=== PATIENT | female | born 1960 | race Caucasian/White ===

== ENCOUNTER 2017-10-14 09:15 | Observation (INO) | payer OTHER ==
[2017-10-14] MEDS ORDERED: ONDANSETRON 4 MG/2 ML VIAL IVP ONE (09:34)
[2017-10-14] MEDS ORDERED: NS 1,000 ML IV ONE (09:34)
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
--- NOTE | 2017-10-14 09:53 | CPEKG ---
Heart Rate: 51 RR Interval: 1176 P-R Interval: 148 QRSD Interval: 84 QT Interval: 440 QTC Interval: 406 P [place]: 72 QRS [place]: 81 T Wave [place]: 54 EKG Severity - NORMAL ECG - EKG Impression: SINUS RHYTHM Electronically Signed By: Finn Coronado 14-Oct-2017 09:56:53
[2017-10-14 10:13] LABS: ANION GAP 11 mEq/L (8-16); CALCIUM 9.2 mg/dL (8.5-10.4); CARBON DIOXIDE 21 mEq/l (22-31); CHLORIDE 110 mEq/L (97-110); CREATININE 0.8 mg/dL (0.6-1.0); GLOMERULAR FILTRATION RATE > 60; GLUCOSE 95 mg/dL (70-100); POTASSIUM 4.6 mEq/L (3.5-5.2); SODIUM 142 mEq/L (134-144); SPECIMEN HEMOLYSIS 113
[2017-10-14 10:25] LABS: TROPONIN I < 0.012 ng/mL (0.000-0.034)
[2017-10-14 10:43] LABS: % IMMATURE GRANULYOCYTES 0.3 % (0.0-1.1); ABSOLUTE IMMATURE GRANULOCYTES 0.02 10^3/uL (0.00-0.10); ADD DIFF? NO; ADD MORPH? NO; ADD SCAN? NO; ATYPICAL LYMPHOCYTE FLAG 0 (0-99); FRAGMENT RBC FLAG 0 (0-99); HEMATOCRIT 39.5 % (38.0-47.0); HEMOGLOBIN 13.6 g/dL (12.6-16.3); LEFT SHIFT FLG 0 (0-99); LIPEMIA HEMOLYSIS FLAG 90 (0-99); MEAN CELL HEMOGLOBIN 31.2 pg (27.9-34.1); MEAN CELL HEMOGLOBIN CONCENTR. 34.4 g/dL (32.4-36.7); MEAN CELL VOLUME 90.6 fL (81.5-99.8); MEAN PLATELET VOLUME 10.7 fL (8.7-11.7); PLATELET CLUMPS FLAG 20 (0-99); PLATELET COUNT 263 10^3/uL (150-400); RED BLOOD CELL COUNT 4.36 10^6/uL (4.18-5.33); RED CELL DISTRIBUTION WIDTH 13.5 % (11.5-15.2)
[2017-10-14] MEDS ORDERED: ACETAMINOPHEN 325 MG TAB PO PRN (11:54)
[2017-10-14] MEDS ORDERED: ONDANSETRON 4 MG/2 ML VIAL IVP PRN (11:54)
[2017-10-14] MEDS ORDERED: ONDANSETRON DISINTEGRATING 4 MG TAB PO PRN (11:54)
[2017-10-14] MEDS ORDERED: ALBUTEROL 60 PUFFS/8 GM MDI IH PRN (11:57)
[2017-10-14] MEDS ORDERED: ACETAMINOPHEN 325 MG TAB ONE (12:05)
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
[2017-10-15] MEDS ORDERED: ENOXAPARIN 40 MG/0.4 ML SYR SC SCH (09:00)
[2017-10-15] MEDS ORDERED: PNEUMOCOCCAL 0.5ML VACCINE VIAL IM ONE (10:58)
[2017-10-15 11:14] VITALS: BP 134/75; PULSE 57; RESP 10; TEMP 98.3; O2SAT 97
--- NOTE | 2017-10-15 12:56 | ECHO ---
[email or web address] [address] Main: [phone] Fax: Transthoracic Echocardiogram Name: ROBBY MACIEL MR#: [id number] Study Date: 10/15/2017 Study Time: 09:39 AM Date of : 1960 Age: 57 year(s) Height: 154.9 cm (61 in.) Weight: 68.49 kg (151 lb.) BSA: 1.68 m2 Gender: Female Examination: Echo Indication: Cardiac: syncope Image Quality: Contrast: Requested by: Naa Hough BP: 123 mmHg/63 mmHg Heart Rate: Rhythm: Sinus bradycardia Indication: Cardiac: syncope Procedure Staff Petroleum Production Engineer: Regino Dalton Reading Physician: Kali Adan Requesting Provider: Conclusions: Normal size left ventricle. EF is 79 %. No regional wall motion abnormality. Normal diastolic LV function. Normal appearing valvular structures. Trivial tricuspid valve regurgitation. The pulmonary artery pressure is normal. No pericardial effusion. Measurements: Chambers Valvular Assessment AV/MV Valvular Assessment TV/PV Normal Normal Normal Name Value Range Name Value Range Name Value Range Ao Radha (MM): 2.7 cm (2.2 cm-3.7 AV Vmax: 1.47 m/s (1 m/s-1.7 TR Vmax: 2.16 mm/s ( - ) cm) m/s) TR PGmax: 19 mmHg ( - ) IVSd (2D): 0.7 cm (0.6 cm-1.1 AV maxP mmHg ( - ) syst. PAP: 24 mmHg ( - ) cm) LVOT Vmax: 0.76 m/s (0.7 m/s-1.1 PV Vmax: 0.94 m/s (0.6 m/s-0.9 LVDd (2D): 3.9 cm (3.9 cm-5.3 m/s) m/s) cm) MV E Vmax: 0.86 m/s ( - ) PV PGmax: 4 mmHg ( - ) LVDs (2D): 2.1 cm (2.1 cm-4 MV A Vmax: 0.46 m/s ( - ) cm) MV E/A: 1.87 ( - ) LVPWd (2D): 0.8 cm ( - ) LVEF (2D): 79 (>=54 %) Continued Measurements: Chambers Valvular Assessment AV/MV Valvular Assessment TV/PV Name Value Name Value Name Value LADs Lon.5 cm MV E' Septal: 0.09 m/s CVP (est.): 5 mmHg Patient: ROBBY MACIEL Study Date: 10/15/2017 Page 1 of 2 09:39 AM LA Area: 11.3 cm2 MV E/E' Septal: 9.50 MV E/E' Lateral: 6.40 Findings: Left Ventricle: Normal size left ventricle. No LV hypertrophy. Normal global systolic LV function. EF is 79 %. No regional wall motion abnormality. Normal diastolic LV function. Right Ventricle: Normal size right ventricle. Normal RV function. Left Atrium: The left atrium is normal in size. Right Atrium: The right atrium is normal in size. Mitral Valve: The mitral valve is normal in appearance and function. There is no mitral valve regurgitation. Aortic Valve: The aortic valve is normal in appearance and function. The aortic valve is tri-leaflet. Tricuspid Valve: The tricuspid valve is normal in appearance and function. Trivial tricuspid valve regurgitation. The pulmonary artery pressure is normal. Pulmonic Valve: The pulmonic valve is normal in appearance and function. Aorta: The aorta is normal. Pericardium: No pericardial effusion. (No Signature Object) Patient: ROBBY MACIEL Study Date: 10/15/2017 Page 2 of 2 09:39 AM [id number]
--- NOTE | 2017-10-15 14:16 | ASMTCMCOM ---
CM Note CM Note Notes: 10/15/2017 Case Management Note Met w/pt. There are no d/c needs. However case management provided grief support group information to aide in support for recent suicide of son. Spiritual Care provided information for support meetings at the [facility] and Sat of the month from 5:30-7:00 pm Jessi Dominguez is police records clerk and can be reached at [phone]. Provided info also on [employer] a national support group with a chapter in [place] [employer]. They provided 1 on 1 support and travel to meet in the pt's home. Polishing Wheel Repairer is Candy Almanzar at [phone] Case Management encouraged pt to use [employer] benefits and to contact insurance company for mental health benefits. Date Signed: 10/15/2017 02:16 PM Electronically Signed By:Jocelyne Tomlin RN
--- NOTE | 2017-10-15 16:59 | ASDISCHSUM ---
Discharge Information Plan Status:Home with No Needs Medically Cleared to Leave:10/14/2017 Discharge Date:10/15/2017 02:37 PM CM D/C Disposition:Home, Routine, Self-Care ADT D/C Disposition:Home, Routine, Self-Care Projected Discharge Date:10/15/2017 02:37 PM Transportation at D/C:Self Discharge Delay Reason: Follow-Up Date:10/15/2017 02:37 PM Discharge Slot: Final Diagnosis: Placement Information Patient Contact Information Contact Name:ELISEOSTELLA Relationship:Daughter Address: Work Phone: City:[place] Alternate Phone: [facility]/[employer] Code:[place] Email: Financial Information Financial Class:[employer] [facility] Primary Plan Desc:[facility] Primary Plan Number:[id number] Secondary Plan Desc: Secondary Plan Number: Assessment Information [facility] CM Progress Note CM Note CM Note Notes: 10/15/2017 Case Management Note Met w/pt. There are no d/c needs. However case management provided grief support group information to aide in support for recent suicide of son. [facility] provided information for support meetings at the [facility] and Sat of the month from 5:30-7:00 pm Jessi Dominguez is regrinder and can be reached at [phone]. Provided info also on [employer] a national support group with a chapter in [place]. They provided 1 on 1 support and travel to meet in the pt's home. Infection Prevention Specialist is Candy Almanzar at [phone] Case Management encouraged pt to use [employer] benefits and to contact insurance company for mental health benefits. Date Signed: 10/15/2017 02:16 PM Electronically Signed By:Jocelyne Tomlin RN Intervention Information
--- NOTE | 2017-10-15 20:53 | GDS ---
[f rep st] DISCHARGE SUMMARY DISCHARGE DIAGNOSES: 1. Syncope. 2. Right foot trauma. 3. Alcohol abuse. 4. Acute grief. HISTORY OF PRESENT ILLNESS: A 57-year-old female with limited past medical history who presents to [facility] emergency department complaining of right hip pain. Noted to have multiple bruises and described an episode of syncope. For details of the patient's initial presentation, please see the history and physical dated 10/14/2017. CONSULTATIVE SERVICES: Cardiology. PROCEDURES: On 10/15/2017, the patient had a transthoracic echocardiogram. Shows normal LV size and function. HOSPITAL COURSE: By issue: 1. Syncope. The patient described an episode several days prior to presentation to the emergency de partment where she lost consciousness while sitting in a chair. Reportedly hit her face, chest, and acquire trauma to her foot. The patient was noted to be bradycardic on the EKG and admitted for sync ope observation. The patient had serial troponins performed, which were negative. veneer sander ing remained sinus with few periods of bradycardia into the 40s that resolved spontaneously. Transth oracic echocardiogram confirmed normal LV size and function. The patient was arranged with an outpat ient Holter monitor and Cardiology followup on 12/11/2016. After her workup, my greatest suspicion i s either an episode related to mild volume depletion, as she described very little p.o. intake beyond alcohol recently and/or possible bradycardic episode or vasovagal episode not seen on telemetry jose eduardo rojas. The patient will additionally follow with her primary care provider for post discharge tanvi ricci. 2. Right foot. The patient presented with bruising on the dorsum and plantar surfaces of her foot. It seemed inconsistent with her description of the mechanism of the fall. Plain film of the foot co nfirmed no acute osseous abnormality. She was seen by PT, ambulating without difficulty, with no nee d for assistive device. The patient will be discharged again with outpatient primary care followup. 3. Acute grief. The patient had several traumatic losses in her life in the last 2 years including her and her son-in-law in the last 2 months. We did consult Case Management who is helping h er arrange grief treatment. 4. Alcohol use. The patient openly admits that she has [facility] and coping. Again, we are hoping to provide more resources to assist her wi th her grief. MEDICATIONS AT THE TIME OF DISPOSITION: Please reference med rec printed on 10/15/2017. FOLLOWUP APPOINTMENTS: Cardiology in December with Holter monitoring to be sent to her home in the n ext 3-5 days and with primary care follow up in the next 2-4 weeks. PENDING STUDIES AT THE TIME OF THIS DICTATION: None. TIME SPENT: I spent greater than 30 minutes in the planning and coordination of this discharge. /[id number]/MODL
== END 2017-10-15 14:37 | disposition home or self-care (01) ==
LOC: UNDOADMOB 11:23 → F2W 13:00
PROVIDERS: ADMIT Hospitalist; ATTEND Hospitalist
DX: R55 Syncope and collapse (principal); R00.1 Bradycardia, unspecified; M79.671 Pain in right foot; S90.121A Contusion of right lesser toe(s) without damage to nail, initial encounter; S00.11XA Contusion of right eyelid and periocular area, initial encounter; W07.XXXA Fall from chair, initial encounter; Y92.019 Unspecified place in single-family (private) house as the place of occurrence of the external cause; F10.10 Alcohol abuse, uncomplicated; F43.20 Adjustment disorder, unspecified; Z23 Encounter for immunization
CPT/HCPCS: 70450; 71020; 73630; 90471; 93005; 93306; 97161; 97165; G0378; 80305; 96374; G0009; J1650; J2405

== ENCOUNTER 2018-07-08 05:56 | Inpatient (IN) | payer MEDICAID, OTHER ==
[2018-07-08] MEDS ORDERED: IPRATROPIUM/ALBUTEROL 3 ML DEYVIAL ONE (05:59)
[2018-07-08] MEDS ORDERED: MAGNESIUM SULF 1 GM/DEXTROSE 100 ML BAG IV ONE (06:00)
[2018-07-08] MEDS ORDERED: methylPREDNISolone SOD SUCC 125 MG/2 ML VIAL ONE (06:00)
[2018-07-08] MEDS ORDERED: MAGNESIUM SULF 2 GM/WATER 50 ML IV ONE (06:01)
[2018-07-08] MEDS ORDERED: NS 1,000 ML IV ONE (06:01)
[2018-07-08] MEDS ORDERED: IPRATROPIUM/ALBUTEROL 3 ML DEYVIAL IH ONE (06:01)
[2018-07-08] MEDS ORDERED: methylPREDNISolone SOD SUCC 125 MG/2 ML VIAL IVP ONE (06:01)
[2018-07-08] MEDS ORDERED: MAGNESIUM SULF 1 GM/DEXTROSE 100 ML IV ONE ×2 (06:08→06:09)
[2018-07-08] MEDS: ALBUTEROL 3 ML DEYVIAL IH ONE (06:10)
[2018-07-08] MEDS ORDERED: ONDANSETRON 4 MG/2 ML VIAL ONE (06:14)
[2018-07-08 06:15] LABS: PLATELET COUNT 342 10^3/uL (150-400)
[2018-07-08] MEDS ORDERED: ONDANSETRON 4 MG/2 ML VIAL IVP ONE (06:17)
[2018-07-08] MEDS ORDERED: ALBUTEROL 3 ML DEYVIAL IH ONE ×2 (06:17→06:40)
--- NOTE | 2018-07-08 06:17 | EDPHY ---
H & P Stated Complaint: asthma Time Seen by Provider: 07/08/18 06:11 HPI/ROS: HPI CHIEF COMPLAINT: Respiratory distress, walk-in, oxygen saturation 54% HISTORY OF PRESENT ILLNESS: A 57-year-old female presents to the emergency room by private vehicle with initial room air saturation of 54%. She presents to the ER with progressively worsening shortness of breath throughout the evening. States she started feeling bad with her asthma around 11:00 p.m. Last night. She thought controlled at home with her asthma medications however progressively got worse. She took a private vehicle here. She was immediately brought back from triage to ER room 2. She is immediately placed on full face BiPAP with a continuous breathing neb. Decreased breath sounds bilaterally with decreased air movement bilaterally and wheezing. Noted she was breathing 40-50 times per minute. O2 sat of 54% upon arrival. Heart rate 115. Patient does not want to be intubated at this time she wants to try BiPA P. She states she has never been intubated for asthma. She does speak 1 word sentences. Was Tri-poding upon arrival. Past Medical History: Asthma Past Surgical History: Denies recent surgery Social History: Denies drugs alcohol tobacco Family History: Noncontributory ROS REVIEW OF SYSTEMS: Limited due to patient's respiratory distress and mental state. Exam Constitutional respiratory distress, triage nursing summary reviewed, vital signs reviewed, awake and in distress. Eyes normal conjunctivae and sclera, EOMI, PERRLA. HENT normal inspection, atraumatic, moist mucus membranes, no epistaxis, neck supple/ no meningismus, no raccoon eyes. Respiratory respiratory distress decreased breath sounds bilaterally, wheezing bilaterally, little air movement. Cardiovascular tachycardic regular rhythm, no murmur, no edema, distal pulses normal. Gastrointestinal soft, non-tender, no rebound, no guarding, normal bowel sounds, no distension, no pulsatile mass. Genitourinary no CVA tenderness. Musculoskeletal no midline vertebral tenderness, full range of motion, no calf swelling, no tenderness of extremities, no meningismus, good pulses, neurovascularly intact. Skin diaphoretic Neurologic awake and alert however 1 more dyspnea. Psychiatric normal mood/affect. Heme/Lymph/Immune no lymphadenopathy. Differential Diagnosis: Includes but is not limited to in a particular order acute respiratory distress, hypoxic respiratory failure, hypercarbic respiratory failure, acute asthma exacerbation, CHF, ACS, pneumonia, PE Medical Decision Making: Plan for this patient she was immediately aggressively resuscitated in the emergency room a upon arrival to triage. She was placed on full face BiPAP continuous neb. She was given IV Solu-Medrol, IV magnesium, IV fluids. 2 large-bore IVs were established. ABG was obtain. She be closely monitored on full face BiPAP as she is declining intubation at this time. Patient does understand if she gets worse including getting tired, or worsening hypoxia or failing BiPAP she will need emergent intubation and is okay with this but at this time she did not want it. Re-evaluation: Critical Care: Total Critical Care Time Spent Managing this Patient: 65 Minutes. This time was spent Exclusively with this patient. This Care was exclusive of procedures. The Organ System/life at risk was pulmonary This Patient was in Critical Condition because severe asthma. EKG interpretation by me on record in [facility] system. Impression time of EKG 6:16 a.m., sinus tach 107 ST depression in lead V4 V5. V6. Most likely due to hypoxia no ST elevation. 0641: Patient is re-evaluated doing much better on full face BiPAP good air movement bilaterally. She has had multiple DuoNeb breathing treatments and continuous nebs. Received IV Solu-Medrol, IV fluids and IV Mag. Doing much better on full face BiPAP this time however still tachypneic. Current vitals heart rate 104, pulse ox 100% on FiO2 100% on BiPAP, blood pressure 135/90. She will need to go the ICU for close monitoring. Will be repeating her ABG. Chest x-ray reviewed does not show pneumonia. No pneumothorax. 0702: I continue to monitor the patient. Doing better. Still on BiPAP will need to go ICU for close monitoring. Repeat ABG better Source: Patient - Personal History Current Tetanus/Diphtheria Vaccine: Unsure Current Tetanus Diphtheria and Acellular Pertussis (TDAP): Unsure - Medical/Surgical History Hx Asthma: Yes Hx Chronic Respiratory Disease: No Hx Diabetes: No Hx Cardiac Disease: No Hx Renal Disease: No Hx Cirrhosis: No Hx Alcoholism: No Hx Splenectomy or Spleen Trauma: No Other PMH: asthma - Social History Smoking Status: Former smoker Constitutional: Initial Vital Signs O2 Sat (%) 93 07/08/18 06:01 O2 Delivery Mode Bi-Pap O2 (L/minute) 100 Allergies/Adverse Reactions: No Known Allergies Allergy (Verified 10/14/17 09:15) Home Medications: Medication Instructions Recorded Albuterol [Proventil Inhaler HFA 1 - 2 puffs IH DAILY PRN 10/14/17 (*)] Ibuprofen [Motrin (*)] 200 mg PO DAILY PRN 10/14/17 Medical Decision Making - Data Points Laboratory Results: Laboratory Results 07/08/18 06:00 07/08/18 06:00 07/08/18 07/08/18 07/08/18 06:50 06:15 06:00 WBC RBC Hgb Hct MCV MCH MCHC RDW Plt Count MPV Neut % (Auto) Lymph % (Auto) [place] % (Auto) Eos % (Auto) Baso % (Auto) Nucleat RBC Rel Count Absolute Neuts (auto) Absolute Lymphs (auto) Absolute Monos (auto) Absolute Eos (auto) Absolute Basos (auto) Absolute Nucleated RBC Immature Gran % Immature Gran # PT INR APTT Puncture Site RIGHT RADIAL RIGHT RADIAL Patient Temperature 37.0 DEGREES DEGREES 37.0 DEGREES DEGREES pCO2 44 mmHg H mmHg 52 mmHg H mmHg (34-38) (34-38) pO2 189 mmHg H mmHg 72 mmHg mmHg (65-75) (65-75) Total CO2 21 mEq/L L mEq/L 22 mEq/L L mEq/L (23-27) (23-27) ABG pH 7.27 L 7.21 L (7.35-7.45) (7.35-7.45) ABG PO2/FiO2 Ratio 189 RATIO RATIO ABG HCO3 19 mEq/L L mEq/L 20 mEq/L L mEq/L (22-26) (22-26) ABG O2 Saturation 99 % H % 89 % L % (92-95) (92-95) ABG Base Excess -7.1 mEq/L L mEq/L -8.1 mEq/L L mEq/L (-2.5-2.5) (-2.5-2.5) O2 Concentration % 100 % % (0-100) Inspiratory Pressure 12 Mode BiPAP YES Sodium Potassium Chloride Carbon Dioxide Anion Gap BUN Creatinine Estimated GFR Glucose Calcium Magnesium Total Bilirubin Conjugated Bilirubin Unconjugated Bilirubin AST ALT Alkaline Phosphatase POC Troponin I 0.01 ng/mL ng/mL (0.00-0.08) NT-Pro-B Natriuret Pep Total Protein Albumin 07/08/18 07/08/18 07/08/18 06:00 06:00 06:00 WBC 14.20 10^3/uL H 10^3/uL (3.80-9.50) RBC 5.16 10^6/uL 10^6/uL (4.18-5.33) Hgb 16.0 g/dL g/dL (12.6-16.3) Hct 47.8 % H % (38.0-47.0) MCV 92.6 fL fL (81.5-99.8) MCH 31.0 pg pg (27.9-34.1) MCHC 33.5 g/dL g/dL (32.4-36.7) RDW 13.2 % % (11.5-15.2) Plt Count 342 10^3/uL 10^3/uL (150-400) MPV 10.8 fL fL (8.7-11.7) Neut % (Auto) 61.5 % % (39.3-74.2) Lymph % (Auto) 26.6 % % (15.0-45.0) [place] % (Auto) 9.1 % % (4.5-13.0) Eos % (Auto) 1.7 % % (0.6-7.6) Baso % (Auto) 0.7 % % (0.3-1.7) Nucleat RBC Rel Count 0.0 % % (0.0-0.2) Absolute Neuts (auto) 8.74 10^3/uL H 10^3/uL (1.70-6.50) Absolute Lymphs (auto) 3.78 10^3/uL H 10^3/uL (1.00-3.00) Absolute Monos (auto) 1.29 10^3/uL H 10^3/uL (0.30-0.80) Absolute Eos (auto) 0.24 10^3/uL 10^3/uL (0.03-0.40) Absolute Basos (auto) 0.10 10^3/uL 10^3/uL (0.02-0.10) Absolute Nucleated RBC 0.00 10^3/uL 10^3/uL (0-0.01) Immature Gran % 0.4 % % (0.0-1.1) Immature Gran # 0.05 10^3/uL 10^3/uL (0.00-0.10) PT 13.3 SEC SEC (12.0-15.0) INR 0.99 (0.83-1.16) APTT 26.3 SEC SEC (23.0-38.0) Puncture Site Patient Temperature pCO2 pO2 Total CO2 ABG pH ABG PO2/FiO2 Ratio ABG HCO3 ABG O2 Saturation ABG Base Excess O2 Concentration % Inspiratory Pressure Mode BiPAP Sodium 144 mEq/L mEq/L (135-145) Potassium 3.8 mEq/L mEq/L (3.3-5.0) Chloride 110 mEq/L mEq/L (97-110) Carbon Dioxide 21 mEq/l L mEq/l (22-31) Anion Gap 13 mEq/L mEq/L (8-16) BUN 14 mg/dL mg/dL (7-23) Creatinine 0.9 mg/dL mg/dL (0.6-1.0) Estimated GFR > 60 Glucose 189 mg/dL H mg/dL (70-100) Calcium 9.8 mg/dL mg/dL (8.5-10.4) Magnesium 2.0 mg/dL mg/dL (1.6-2.3) Total Bilirubin 0.3 mg/dL mg/dL (0.1-1.4) Conjugated Bilirubin 0.2 mg/dL mg/dL (0.0-0.5) Unconjugated Bilirubin 0.1 mg/dL mg/dL (0.0-1.1) AST 23 IU/L IU/L (14-46) ALT 23 IU/L IU/L (9-52) Alkaline Phosphatase 66 IU/L IU/L (38-126) POC Troponin I NT-Pro-B Natriuret Pep 148 pg/mL H pg/mL (0-125) Total Protein 7.1 g/dL g/dL (6.3-8.2) Albumin 4.3 g/dL g/dL (3.5-5.0) Medications Given: Magnesium Sulfate/Dextrose (Magnesium Sulf 1 Gm (Premix)) 100 mls @ 100 mls/hr IV EDNOW ONE Stop: 07/08/18 07:07 Last Admin: 07/08/18 06:09 Dose: 100 mls Magnesium Sulfate/Dextrose (Magnesium Sulf 1 Gm (Premix)) 100 mls @ 100 mls/hr IV EDNOW ONE Stop: 07/08/18 07:08 Last Admin: 07/08/18 06:09 Dose: 100 mls Levofloxacin/Dextrose (Levaquin 750 Mg (Premix)) 150 mls @ 100 mls/hr IV EDNOW ONE PRN Reason: Protocol Stop: 07/08/18 07:48 Last Admin: 07/08/18 06:45 Dose: 150 mls Discontinued Medications Albuterol (Proventil Neb) 10 ml IH CONT ONE Stop: 07/08/18 06:03 Last Admin: 07/08/18 06:10 Dose: 10 ml Albuterol (Proventil Neb) 10 ml IH CONT ONE Stop: 07/08/18 06:18 Last Admin: 07/08/18 06:37 Dose: 10 ml Albuterol (Proventil Neb) 10 ml IH CONT ONE Stop: 07/08/18 06:41 Last Admin: 07/08/18 06:59 Dose: 10 ml Albuterol/Ipratropium (Duoneb) 3 ml IH EDNOW ONE Stop: 07/08/18 06:02 Last Admin: 07/08/18 06:10 Dose: 3 ml Etomidate (Etomidate) 20 mg IVP EDNOW ONE Stop: 07/08/18 06:34 Last Admin: 07/08/18 06:37 Dose: Not Given Sodium Chloride (Ns) 1,000 mls @ 0 mls/hr IV EDNOW ONE; Wide Open PRN Reason: Protocol Stop: 07/08/18 06:02 Last Admin: 07/08/18 06:11 Dose: 1,000 mls Magnesium Sulfate (Magnesium Sulf 2 Gm (Premix)) 50 mls @ 50 mls/hr IV EDNOW ONE Stop: 07/08/18 07:00 Last Admin: 07/08/18 06:08 Dose: Not Given Ketamine HCl (Ketamine) 200 mg IVP EDNOW ONE Stop: 07/08/18 06:34 Last Admin: 07/08/18 06:37 Dose: Not Given Methylprednisolone Sodium Succinate (Solu-Medrol) 125 mg IVP EDNOW ONE Stop: 07/08/18 06:02 Last Admin: 07/08/18 06:12 Dose: 125 mg Ondansetron HCl (Zofran) 4 mg IVP EDNOW ONE Stop: 07/08/18 06:18 Last Admin: 07/08/18 06:17 Dose: 4 mg Succinylcholine Chloride (Quelicin) 100 mg IVP EDNOW ONE Stop: 07/08/18 06:34 Last Admin: 07/08/18 06:37 Dose: Not Given Point of Care Test Results: Chemistry 07/08/18 06:15 POC Troponin I 0.01 ng/mL ng/mL (0.00-0.08) Departure - Departure Disposition: [facility] Inpatient Acute Clinical Impression: Respiratory distress, Acute respiratory failure with hypoxia Severe asthma Qualifiers: Asthma persistence: persistent Asthma complication type: uncomplicated Qualified Code(s): J45.50 - Severe persistent asthma, uncomplicated Condition: Critical
[2018-07-08 06:23] LABS: INR 0.99 (0.83-1.16); PROTIME(PATIENT) 13.3 SEC (12.0-15.0)
[2018-07-08] MEDS ORDERED: ETOMIDATE 40 MG/20 ML INJ IVP ONE (06:33)
[2018-07-08] MEDS ORDERED: KETAMINE 500 MG/10 ML VIAL IVP ONE (06:33)
[2018-07-08] MEDS ORDERED: SUCCINYLCHOLINE CHLORIDE 200 MG/10 ML SYR IVP ONE (06:33)
[2018-07-08] MEDS ORDERED: ONDANSETRON 4 MG/2 ML VIAL IVP PRN (07:14)
[2018-07-08] MEDS ORDERED: NS 1,000 ML IV SCH (07:15)
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
[2018-07-08] MEDS: ALBUTEROL 3 ML DEYVIAL IH PRN ×3 (08:06→15:52)
[2018-07-08] MEDS ORDERED: BUDESONIDE 0.5 MG/2 ML AMPUL.NEB IH SCH (09:00)
[2018-07-08] MEDS: ENOXAPARIN 40 MG/0.4 ML SYR SC SCH (09:58)
[2018-07-08] MEDS ORDERED: ALBUTEROL 3 ML DEYVIAL IH SCH ×2 (10:00→12:00)
[2018-07-08] MEDS ORDERED: AZITHROMYCIN IV 500 MG in NS 250 ML IV ONE (10:00)
--- NOTE | 2018-07-08 10:37 | HOSPPROG ---
Hospitalist Progress Note Assessment/Plan: # asthma with acute exacerbation - cont bipap, steroids, azith, nebs # acute hypoxic and hypercapnic resp failure - resp pcr pending Subjective: SBO improved on bipap Objective: Vital Signs Temp Pulse Resp BP Pulse Ox 37 C 103 H 21 H 120/74 95 07/08/18 08:19 07/08/18 10:00 07/08/18 10:00 07/08/18 10:00 07/08/18 10:00 PT 13.3 SEC (12.0-15.0) 07/08/18 06:00 INR 0.99 (0.83-1.16) 07/08/18 06:00 - Physical Exam Constitutional: uncomfortable Cardiovascular: no murmur, rub, or gallop, tachycardia Respiratory: expiratory wheeze, respiratory distress (mod), No reduced air movement, No inspiratory crackles, No bronchial breath sounds Gastrointestinal: soft, non-tender abdomen, no palpable masses, No guarding, No rebound, No distension ICD10 Worksheet Patient Problems: Problems Problem Status Onset Syncope and collapse Acute Bradycardia Acute Severe asthma Acute Respiratory distress Acute Acute respiratory failure with hypoxia Acute
[2018-07-08] MEDS ORDERED: methylPREDNISolone SOD SUCC 125 MG/2 ML VIAL IVP SCH (12:00)
[2018-07-08] MEDS: methylPREDNISolone SOD SUCC 125 MG/2 ML VIAL IVP SCH ×2 (12:04→17:28)
[2018-07-08] MEDS: LORazepam 2 MG/ML INJ IVP PRN ×2 (12:11→23:14)
--- NOTE | 2018-07-08 12:43 | GCON ---
CRITICAL CARE CONSULT DATE OF CONSULTATION: 07/08/2018 HISTORY OF PRESENT ILLNESS: This patient is a 57-year-old female who has a history of mild intermitt ent asthma, normally controlled with p.r.n. beta agonists alone, who developed a recent upper respira tory infection including sinus congestion and drainage which appeared to be getting better. Late las t night, however, she woke up suddenly short of breath and described inspiratory wheezing or stridor. She was taken to the emergency department where she was found to be cyanotic and had a room air oxy gen saturation of only 50%. She was placed on BiPAP, given nebulizers, as well as magnesium and ster oids. The emergency department staff was about to intubate her, but she declined and stabilized with BiPAP alone. A chest x-ray showed no significant infiltrates, though she did have an elevated white count. Her blood gas showed a pH 7.21, pCO2 of 52, and bicarb of 20, with a PO2 of 72. She was sub sequently transferred to the intensive care unit where her tachypnea was substantially better than on arrival. She did have a trial off BiPAP, but felt more comfortable with it in place. Her blood gas es on BiPAP certainly showed signs of improvement. She denies any chills or sweats. There has been no diarrhea. There has been no chest pain. No hemo ptysis. She has a history of allergic rhinitis, as well as asthma, with a documented FEV1 of about 7 8%, with obstructive spirometry in 2013. She has not had a lot of emergency room visits, hospitaliza tions, or pneumothorax related to her underlying asthma. REVIEW OF SYSTEMS: Otherwise negative. PAST MEDICAL HISTORY: Includes: 1. Asthma as described above. 2. Benign positional vertigo. 3. Vasovagal syncope in the past. 4. Allergic rhinitis. PAST SURGICAL HISTORY: Includes tubal ligation. SOCIAL HISTORY: She is a remote smoker, but has not smoked in many years. Occasional alcohol. No I V drug use. FAMILY HISTORY: Includes breast cancer. OUTPATIENT MEDICATIONS: Include only albuterol and ibuprofen p.r.n. EXAM: VITAL SIGNS: She has been afebrile since admission. Her blood pressure now 120/74, heart rat e 103, respirations 21, oxygen saturation 95% on 50% with BiPAP. GENERAL: She was awake and alert, oriented x3, in no major distress. Not using accessory muscles for breathing. She was able to speak in full sentences both on and off BiPAP. HEENT: Pupils equally round and reactive to light. Nonic teric and noninjected. Mucous membranes moist without erythema or exudate. No evidence of thrush. LUNGS: Breath sounds had faint inspiratory and expiratory wheezing, but was otherwise clear with goo d air movement. HEART: Regular rate and rhythm without murmurs, rubs, gallops. ABDOMEN: Soft, non tender, nondistended, without hepatosplenomegaly. EXTREMITIES: Show no clubbing, cyanosis, or edema . NEUROLOGIC: Nonfocal, including cranial nerves, deep tendon reflexes. SKIN: Warm and dry withou t evidence of rash. OBJECTIVE DATA: Includes a white count of 14, hematocrit 47.8, platelets of 342. Normal INR. Blood gas initially 7.21, pCO2 52, PO2 72, bicarb of 20, saturation 89%. Followup blood gas with a pH 7.2 7, pCO2 44, PO2 189, bicarb of 19, saturation 99%. Basic metabolic panel was essentially normal, carmen e for a glucose of 189. LFTs were normal. BNP was only 148. Troponin was negative. Chest x-ray and EKG were negative. ASSESSMENT/PLAN: 1. Asthma exacerbation, likely related to a recent upper respiratory infection. Other more remote p ossibilities would be vocal cord dysfunction or possibly mucus plugging that would cause inspiratory stridor. I heard no stridor during my exam. She seemed to be better, but she was more comfortable o n BiPAP. I think in the short term, we should support her with BiPAP as needed. Continue to give he r albuterol; though she is only getting p.r.n. nebs, I would schedule her q.6 hours. She is getting scheduled 60 mg q.6 hours of Solu-Medrol; increase at 125 at least for today. She got Levaquin in e emergency department, but I think a macrolide antibiotic would be more useful, though my suspicion for bacterial infection is low. There are other properties of macrolides, particularly useful in the asthma setting. I do not feel that she needs Heliox at this time or more aggressive therapies. We will see how well she does with BiPAP over the rest of the day. 2. Hypoxemia. This is related to #1. She is doing substantially better at this point and her respi ratory rate is improved. My suspicion for other diseases such as acute coronary syndromes or pulmona ry embolism is quite low at this point. /[id number]/MODL
--- NOTE | 2018-07-08 15:19 | ASMTCMCOM ---
CM Note CM Note Notes: 57yr old female admitted for SOB, Respiratory distress, N/V/D. She has a Hx of Asthma, BPPV and a former smoker. Patient now on Bipap and getting neb tx's-doing better. She has a daughter who lives in [place]. May not have discharge needs. Date Signed: 07/08/2018 03:16 PM Electronically Signed By:Nereida Reddy LCSW
[2018-07-08] MEDS: ACETAMINOPHEN 325 MG TAB PO PRN (17:28)
[2018-07-08] MEDS: IPRATROPIUM/ALBUTEROL 3 ML DEYVIAL IH SCH ×2 (17:37→23:03)
[2018-07-09] MEDS: methylPREDNISolone SOD SUCC 125 MG/2 ML VIAL IVP SCH ×4 (00:05→18:19)
[2018-07-09] MEDS: ALBUTEROL 3 ML DEYVIAL IH PRN (02:43)
[2018-07-09] MEDS: ACETAMINOPHEN 325 MG TAB PO PRN ×2 (02:54→10:56)
[2018-07-09] MEDS: LORazepam 2 MG/ML INJ IVP PRN (02:55)
[2018-07-09] MEDS: IPRATROPIUM/ALBUTEROL 3 ML DEYVIAL IH SCH ×3 (05:47→16:59)
[2018-07-09 06:25] LABS: PLATELET COUNT 214 10^3/uL (150-400)
[2018-07-09] MEDS: ENOXAPARIN 40 MG/0.4 ML SYR SC SCH (08:18)
[2018-07-09] MEDS: AZITHROMYCIN IV 250 MG in NS 250 ML IV SCH (08:18)
--- NOTE | 2018-07-09 09:47 | PDMN ---
Medical Necessity Medical necessity: Pt meets IP criteria per MD & MCG M-60; est los >2 mn for eval/tx of status asthmaticus w/acute hypoxic & hypercapnic respiratory failure , viral syndrome & hyperglycemia; pt critically ill; requiring further ICU monitoring, BiPAP, respiratory supportive care, IV Solu-Medrol, IVFs & IV abx; per H&P & order 07/08/18
[2018-07-09] MEDS ORDERED: ALBUTEROL 60 PUFFS/8 GM MDI IH PRN (10:54)
[2018-07-09] MEDS ORDERED: IBUPROFEN 200 MG TAB PO PRN (10:54)
[2018-07-09] MEDS ORDERED: ALBUTEROL SULFATE 1.25 MG IH PRN (10:54)
--- NOTE | 2018-07-09 12:34 | PDINTPN ---
Glove Tagger Progress Note Assessment/Plan: 57 F with history of asthma and recent URI complained of waking with severe SOB , inspiratory and expiratory wheezing so came to ER where she was found to be very hypoxic but had a normal CXR, EKG, etc. She was treated with steroids, nebs , levaquin, magnesium and bipap and transferred to ICU. A brief trial off bipap on arrival was unsuccessful so her steroids were increased, nebs changed to duoneb and antibiotic changed to Zithromax. * Asthma with acute exacerbation likely related to rhinovirus URI. She has improved substantially today and has transitioned off bipap to 6 lpm oxymask. Agree with reduced steroid dose to 60/6 hrs today but continue with azithromycin and nebs. Heliox not needed. * OK for SDU Subjective: feeling slightly better after using bipap all day/night. Objective: Vital Signs Temp Pulse Resp BP Pulse Ox 37.3 C 95 18 112/62 96 07/09/18 00:00 07/09/18 11:15 07/09/18 11:15 07/09/18 10:00 07/09/18 11:15 Microbiology 07/08/18 09:30 Respiratory Panel (PCR) - Final Nasal, Sinus - Swab Human Rhinovirus/Enterovirus Laboratory Results 07/09/18 06:10 07/09/18 06:10 07/08/18 07/09/18 07/10/18 05:59 05:59 05:59 Intake Total 2833 Output Total 1200 Balance 1633 PT 13.3 SEC (12.0-15.0) 07/08/18 06:00 INR 0.99 (0.83-1.16) 07/08/18 06:00 Physical Exam - Physical Exam General Appearance: alert, no apparent distress EENT: PERRL/EOMI Neck: supple Respiratory: decreased breath sounds, wheezing, No respiratory distress, No accessory muscle use, No stridor Cardiac/Chest: regular rate, rhythm, No edema Abdomen: non-tender, soft, No distended Skin: normal color, warm/dry, No cyanosis Lymphatic: no adenopathy Extremities: No pedal edema Neuro/Psych: alert, normal mood/affect, oriented x 3 ICD10 Worksheet Patient Problems: Problems Problem Status Onset Acute respiratory failure with hypoxia Acute Respiratory distress Acute Severe asthma Acute Bradycardia Acute Syncope and collapse Acute
--- NOTE | 2018-07-09 17:57 | HOSPPROG ---
Hospitalist Progress Note Assessment/Plan: Assessment: 57 yo F p/w acute hypoxic and hypercapnic respiratory failure 2/2 acute asthma exacerbation Plan: # asthma with acute exacerbation. evidenced by diffuse exp wheezes, hypoxia/ hypercapnea -d/w Dr. Giraldo on rounds, we agree to reduce steroids to methylpre 60 q6, cont scheduled nebs w/ ongoing wheezing, cont azithro D#2 # acute hypoxic and hypercapnic resp failure. pCO2 52 w/ ph 7.21 w/ SpO 54% and objective tachypnea (RR 46) w/ visible resp distress, 2/2 asthma exacerbation -CXR w/o focal infiltrate (personally interpreted) -cont breathing tx/steroids -cont on supp high flow o2, no heliox # URI. likely trigger, rhino/enterovirus (+) -tx supportively diet. regular ppx. high risk, lovenox 40 code. full dispo. ADD uncertain, exacerbation clinically unresolved high risk patient of worsening morbidity/mortality, cont SDU care Subjective: patient fatigued Objective: Vital Signs Temp Pulse Resp BP Pulse Ox 37.2 C 102 H 18 133/72 H 97 07/09/18 16:00 07/09/18 17:10 07/09/18 17:10 07/09/18 16:00 07/09/18 17:10 Laboratory Results 07/09/18 06:10 07/09/18 06:10 07/08/18 07/09/18 07/10/18 05:59 05:59 05:59 Intake Total 2833 1950 Output Total 1200 700 Balance 1633 1250 PT 13.3 SEC (12.0-15.0) 07/08/18 06:00 INR 0.99 (0.83-1.16) 07/08/18 06:00 - Physical Exam Constitutional: appears nourished, not in pain, chronically ill appearing, uncomfortable Cardiovascular: regular rate and rhythym, no murmur, rub, or gallop, No edema Respiratory: reduced air movement (on exp bilat), expiratory wheeze, No inspiratory crackles, No respiratory distress Gastrointestinal: normoactive bowel sounds, soft, non-tender abdomen, no palpable masses Neurologic: AAOx3, other (lethagic but arousable) Psychiatric: interacting appropriately, not anxious, not encephalopathic, thought process linear, flat affect ICD10 Worksheet Patient Problems: Problems Problem Status Onset Syncope and collapse Acute Bradycardia Acute Severe asthma Acute Respiratory distress Acute Acute respiratory failure with hypoxia Acute
[2018-07-09] MEDS ORDERED: CALCIUM CARBONATE 500 MG CHEWABLE TAB PO PRN (18:24)
--- NOTE | 2018-07-09 23:09 | CPEKG ---
Test Reason : OPEN Blood Pressure : / mmHG Vent. Rate : 107 BPM Atrial Rate : 054 BPM P-R Int : 174 ms QRS Dur : 094 ms QT Int : 350 ms P-R-T Axes : 089 094 -03 degrees QTc Int : 467 ms Sinus tachycardia Borderline right axis deviation Confirmed by Mazin Cole ([id number]) on 07/09/2018 11:08:11 PM Referred By: Confirmed By:Mazin Cole
[2018-07-10] MEDS: methylPREDNISolone SOD SUCC 125 MG/2 ML VIAL IVP SCH ×2 (00:42→05:53)
[2018-07-10] MEDS: IPRATROPIUM/ALBUTEROL 3 ML DEYVIAL IH SCH ×2 (00:45→05:44)
[2018-07-10] MEDS: ENOXAPARIN 40 MG/0.4 ML SYR SC SCH (08:33)
[2018-07-10] MEDS: AZITHROMYCIN IV 250 MG in NS 250 ML IV SCH (08:54)
--- NOTE | 2018-07-10 09:41 | PDINTPN ---
[employer] Package Symbol Stamper Progress Note Assessment/Plan: 57 F with history of asthma and recent URI complained of waking with severe SOB , inspiratory and expiratory wheezing so came to ER where she was found to be very hypoxic but had a normal CXR, EKG, etc. She was treated with steroids, nebs , levaquin, magnesium and bipap and transferred to ICU. A brief trial off bipap on arrival was unsuccessful so her steroids were increased, nebs changed to duoneb and antibiotic changed to Zithromax. * Asthma with acute exacerbation likely related to rhinovirus URI. She continues to improve and is now don to 2 lpm NC (86% RA at rest). Change to prednisone and advair 100/50 with prn albuterol. Complete 5 days (01/06 today) zithromax. May be ready for dc home in AM, in which case she should taper prednisone over about 2 weeks. After 3-4 weeks, she should see me in the office for eval, including PFTs. Would dc on advair, which we can modify as appropriate as an outpatient. She was previously controlled on albuterol prn alone (no maintenance therapy). * Hypoxia- 2/2 asthma exacerbation. Not quite ready for RA at the moment and may need to be dc'd on O2 * OK for med/surg today (transfer orders written) 07/10/18 09:37 Subjective: feels much better today Objective: Vital Signs Temp Pulse Resp BP Pulse Ox 36.8 C 88 13 118/62 92 07/10/18 08:30 07/10/18 08:30 07/10/18 08:30 07/10/18 08:30 07/10/18 08:30 Laboratory Results 07/09/18 06:10 07/09/18 06:10 07/09/18 07/10/18 07/11/18 05:59 05:59 05:59 Intake Total 2833 2050 Output Total 1200 700 1 Balance 1633 1350 -1 PT 13.3 SEC (12.0-15.0) 07/08/18 06:00 INR 0.99 (0.83-1.16) 07/08/18 06:00 Physical Exam - Physical Exam General Appearance: alert, no apparent distress EENT: PERRL/EOMI Neck: supple Respiratory: lungs clear, normal breath sounds, No respiratory distress, No accessory muscle use Cardiac/Chest: regular rate, rhythm, No edema Abdomen: non-tender, soft, No distended Skin: normal color, warm/dry, No cyanosis Lymphatic: no adenopathy Extremities: No pedal edema Neuro/Psych: alert, normal mood/affect, oriented x 3 ICD10 Worksheet Patient Problems: Problems Problem Status Onset Acute respiratory failure with hypoxia Acute Respiratory distress Acute Severe asthma Acute Bradycardia Acute Syncope and collapse Acute
[2018-07-10] MEDS ORDERED: predniSONE 20 MG TAB PO SCH (09:54)
[2018-07-10] MEDS: FLUTICASONE/SALMETER 100/50MCG DISKUS IH SCH ×2 (09:55→20:13)
--- NOTE | 2018-07-10 10:06 | HOSPPROG ---
Hospitalist Progress Note Assessment/Plan: Assessment: 57 yo F p/w acute hypoxic and hypercapnic respiratory failure 2/2 acute asthma exacerbation Plan: # asthma with acute exacerbation. evidenced by diffuse exp wheezes, hypoxia/ hypercapnea -d/w Dr. Giraldo, we agree that wheezing improving and will transfer to med surg, -adjust steroids to pred 40 daily w/ plan for 2 week taper and 3-4 week f/u w/ Dr. Giraldo -started advair, cont as outpt -adjust to PRN nebs -cont azithro D#3/5 # acute hypoxic and hypercapnic resp failure. pCO2 52 w/ ph 7.21 w/ SpO 54% and objective tachypnea (RR 46) w/ visible resp distress, 2/2 asthma exacerbation -hypoxic on RA (86%), remains clinically unresolved # URI. likely trigger, rhino/enterovirus (+) -tx supportively diet. regular ppx. high risk, lovenox 40 code. full dispo. ADD 07/11, exacerbation clinically unresolved Subjective: patient feels better, somewhat SOB w/ activity, felt SOB when off o2 Objective: Vital Signs Temp Pulse Resp BP Pulse Ox 36.8 C 88 13 118/62 92 07/10/18 08:30 07/10/18 08:30 07/10/18 08:30 07/10/18 08:30 07/10/18 08:30 Laboratory Results 07/09/18 06:10 07/09/18 06:10 07/09/18 07/10/18 07/11/18 05:59 05:59 05:59 Intake Total 2833 2050 Output Total 1200 700 1 Balance 1633 1350 -1 PT 13.3 SEC (12.0-15.0) 07/08/18 06:00 INR 0.99 (0.83-1.16) 07/08/18 06:00 - Pending Discharge Pending Discharge Within 24 Hours: Yes Pending Discharge Date: 07/11/18 Pending Discharge Time: 11:00 - Physical Exam Constitutional: no apparent distress, appears nourished, not in pain, No uncomfortable Cardiovascular: regular rate and rhythym, no murmur, rub, or gallop, No edema Respiratory: reduced air movement (on exp bilat), expiratory wheeze (bilat, fine ), No inspiratory crackles, No bronchial breath sounds, No respiratory distress Gastrointestinal: normoactive bowel sounds, soft, non-tender abdomen, no palpable masses, No distension Neurologic: AAOx3 Psychiatric: interacting appropriately, not anxious, not encephalopathic, thought process linear ICD10 Worksheet Patient Problems: Problems Problem Status Onset Syncope and collapse Acute Bradycardia Acute Severe asthma Acute Respiratory distress Acute Acute respiratory failure with hypoxia Acute
[2018-07-10] MEDS: IPRATROPIUM/ALBUTEROL 3 ML DEYVIAL IH PRN ×2 (10:52→20:23)
--- NOTE | 2018-07-10 14:47 | ASMTCMCOM ---
CM Note CM Note Notes: Chart reviewed. Patient PT evaluation indicates no needs at this time. Lives with daughter. CM available should needs arise. Plan: Likely home independently. Date Signed: 07/10/2018 02:47 PM Electronically Signed By:Sloane Lobato RN
[2018-07-11] MEDS: ENOXAPARIN 40 MG/0.4 ML SYR SC SCH (08:32)
[2018-07-11] MEDS ORDERED: predniSONE 20 MG TAB PO SCH (09:00)
[2018-07-11] MEDS ORDERED: AZITHROMYCIN 250 MG TAB PO SCH (09:00)
[2018-07-11] MEDS: FLUTICASONE/SALMETER 100/50MCG DISKUS IH SCH (09:48)
[2018-07-11 11:33] VITALS: BP 139/77
--- NOTE | 2018-07-11 13:18 | PDHOMEO2F ---
Home Oxygen Face to Face Home Orders: I certify that a physician or a nurse practitioner or physician's anesthesiologists' assistant has had a [id number] encounter with this patient on the date of this order due to the diagnosis listed, which relates to the primary reason the patient requires home oxygen. Alternative treatments have been tried, or considered, and deemed ineffective. It is anticipated that supplemental oxygen will result in improvement with treatment. Home oxygen qualifying diagnosis: Asthma SpO2 on room air (%): 86 Frequency of home oxygen needed: continuous Home oxygen liters per minute: 2 Home oxygen delivery device: nasal cannula Concentrator: Yes E-tanks for mobility and back up: Yes If ordering portable O2, is the patient mobile in the home?: Yes I certify that, based on these findings, the home oxygen is medically necessary for this patient for the following length of time. Length of time home oxygen needed: 1 month
[2018-07-11] MEDS ORDERED: IPRATROPIUM/ALBUTEROL 3 ML DEYVIAL IH SCH (13:30)
--- NOTE | 2018-07-11 16:00 | PDDCSUM ---
Discharge Summary Discharge Summary: DISCHARGE SUMMARY FOLLOW-UP ITEMS: Outpatient pulmonary function test in 3-4 weeks Reassess oxygen requirements at pulmonary office DATE OF ADMISSION: 07/08/2018 DATE OF DISCHARGE: 07/11/2018 DISCHARGE DIAGNOSES: 1. Acute asthma exacerbation 2. Acute hypoxic and hypercapnic respiratory failure 3. Upper respiratory infection CONSULTATIONS: Pulmonary critical care PROCEDURES / IMAGING: Chest x-ray demonstrating no infiltrate CHIEF COMPLAINT: Acute shortness of breath SUBJECTIVE: Patient is feeling well at time discharge, she does have some ongoing expiratory wheeze and had significant coughing overnight, she requests to be discharged home at this time PHYSICAL EXAM ON DISCHARGE: Systolic blood pressure is 110-120, heart rate 80, afebrile overnight, satting 86% on room air at rest, 85% on room air with activity, faint expiratory wheeze bilaterally posteriorly, more pronounced expiratory wheeze anteriorly, no bronchial breath sounds, no inspiratory crackles, heart rhythm is regular, no lower extremity edema, alert awake oriented x3, not encephalopathic HOSPITAL COURSE BY PROBLEM: Patient presented with acute hypoxic and hypercapnic respiratory failure secondary to acute asthma exacerbation. The patient's arterial blood gas demonstrated a pCO2 of 52 with a pH of 7.21 and her initial SPO 2 was 54% on room air with objective tachypnea, notably respiratory rate of 46, with visible respiratory distress. The patient was placed on high-flow supplemental oxygen, and then BiPAP therapy after her blood gas results were available. Her respiratory status was stabilized on BiPAP, and then de-escalated to high-flow oxygen, weaned to 2 L nasal cannula after receiving several days of scheduled duo nebulizer treatments as well as high-dose IV steroids. Her steroids were titrated to prednisone 40 mg daily, with the plan for an extended taper in the outpatient setting. Her scheduled duo nebs were weaned to as needed nebulizer treatments, and the patient will receive a prescription for as needed albuterol nebulized, as well as use of her home inhaler p.r.n.. She was seen consultation by Pulmonary who recommended scheduled comma low-dose Advair, and follow-up pulmonary function tests in approximately 3-4 weeks after this acute episode has resolved. She also received macrolide antibiotic to reduce airway inflammation and reduce duration of symptoms. Her trigger for her asthma exacerbation was most likely an upper respiratory infection, notably enterovirus and rhinovirus on respiratory PCR. She was treated supportively with antitussives and contact precautions, and will continue antitussives with as needed albuterol moving forward. She will require supplemental oxygen at time of discharge, with oxygen needs to be reassessed as an outpatient. She has plans to travel to [place] in the near future, and we have recommended that the patient purchase an ambulatory pulse oximeter, to determine whether she requires supplemental oxygen in the short term, [place]. We advised her that if she is hypoxic on pulse oximeter comma that she utilize her albuterol inhaler and seek medical attention if necessary. DISCHARGE MEDICATIONS: Please see official discharge medication reconciliation sheet in chart , Advair 100/50 twice daily, albuterol inhaler as needed, albuterol nebulized as needed, prednisone taper, azithromycin 250 for 1 subsequent day, Tessalon Perles as needed. DISCHARGE INSTRUCTIONS: Please follow up with Dr. James Giraldo in 3-4 weeks. TIME SPENT: Greater than 30 minutes were spent on direct patient care, as well as discharge planning and preparation.
== END 2018-07-11 14:45 | disposition home or self-care (01) | DRG 141 ==
LOC: F2N 07:44 → F1N 07-10 15:53
PROVIDERS: ADMIT Family Medicine; ATTEND Family Medicine
PROC: 5A0935Z Assistance with Respiratory Ventilation, Less than 24 Consecutive Hours (ICD-10-PCS; principal; 2018-07-08)
DX: J45.901 Unspecified asthma with (acute) exacerbation (principal); J96.01 Acute respiratory failure with hypoxia; J96.02 Acute respiratory failure with hypercapnia; J06.9 Acute upper respiratory infection, unspecified; B97.10 Unspecified enterovirus as the cause of diseases classified elsewhere; B97.89 Other viral agents as the cause of diseases classified elsewhere; E16.2 Hypoglycemia, unspecified; H81.10 Benign paroxysmal vertigo, unspecified ear
CPT/HCPCS: 84484-PO; 96374; 97116-GP; 97161-GP; J0330; J0456; J1650; J1956; J2060; J2270; J2405; J2930; J3475; J7512; J7613; J7626

== ENCOUNTER 2019-02-01 13:36 | Inpatient (IN) | payer MEDICAID ==
[2019-02-01] MEDS ORDERED: IPRATROPIUM/ALBUTEROL 3 ML DEYVIAL IH ONE (13:39)
[2019-02-01] MEDS ORDERED: methylPREDNISolone SOD SUCC 125 MG/2 ML VIAL IVP ONE (13:43)
[2019-02-01] MEDS ORDERED: ALBUTEROL 3 ML DEYVIAL IH ONE (13:43)
--- NOTE | 2019-02-01 13:47 | EDPHY ---
H & P Stated Complaint: asthma exacerbation Time Seen by Provider: 02/01/19 13:40 HPI/ROS: CHIEF COMPLAINT: Shortness of breath HISTORY OF PRESENT ILLNESS: 58-year-old female with asthma presents with shortness of breath. Onset of mild shortness of breath yesterday. Using home nebulizer with some relief yesterday. Shortness of breath increased today, is severe and unrelieved with home nebs. SOB at rest, agrevated with minimal exertion. Prior admission for asthma requiring BiPAP and a 5 day admission. No recent URI symptoms, chest pain or fever. REVIEW OF SYSTEMS: complete 10 point ROS reviewed and is negative except for the noted elements in the HPI - Personal History Current Tetanus Diphtheria and Acellular Pertussis (TDAP): Yes - Medical/Surgical History Hx Asthma: Yes Hx Chronic Respiratory Disease: No Hx Diabetes: No Hx Cardiac Disease: No Hx Renal Disease: No Hx Cirrhosis: No Hx Alcoholism: No Hx HIV/AIDS: No Hx Splenectomy or Spleen Trauma: No Other PMH: asthma - Social History Smoking Status: Former smoker Alcohol Use: Sober - Physical Exam Exam: General Appearance: Alert, pleasant, speaks in full sentences on oxygen 8 L by nasal cannula Eyes: Pupils equal and round, no conjunctival pallor or injection ENT, Mouth: Mucous membranes moist Neck: Normal inspection Respiratory: Tachypnea, diffuse expiratory wheezing Cardiovascular: Regular rate and rhythm Gastrointestinal: Abdomen is soft and nontender Neurological: A&O, nonfocal, normal gait Skin: Warm and dry Extremities: Normal inspection Psychiatric: Mood and affect normal Constitutional: Initial Vital Signs Temperature (C) 36.7 C 02/01/19 13:41 Heart Rate 108 H 02/01/19 13:41 Respiratory Rate 34 H 02/01/19 13:41 Blood Pressure 152/106 H 02/01/19 13:41 O2 Sat (%) 77 L 02/01/19 13:41 O2 Delivery Mode Room Air O2 (L/minute) 5 Allergies/Adverse Reactions: No Known Allergies Allergy (Verified 02/01/19 13:40) Home Medications: Medication Instructions Recorded Albuterol [Proventil Inhaler HFA 1 - 2 puffs IH Q4H PRN 10/14/17 (*)] Albuterol Sulfate [ALBUTEROL 1.25 mg IH Q4H PRN #30 vial.neb 09/07/18 SULFATE 1.25 MG/3 ML] Fluticasone/Salmeter 100/50Mcg 1 puffs IH BID #1 disk 07/11/18 [Advair 100/50 (*)] Medical Decision Making - Diagnostics Imaging Results: Imaging Impressions Chest X-Ray 02/01/19 13:43 Impression: No evidence for acute cardiopulmonary abnormality. Imaging: I viewed and interpreted images myself ED Course/Re-evaluation: This patient presents with an asthma exacerbation and acute hypoxemic respiratory failure with O2 sat 77% RA. DuoNeb and continuous albuterol neb given. Solu-Medrol 125 mg IV given. IV NS 1 liter. 1420: improved air exchange, continued diffuse expiratory wheezing. Switched to oximask, O2 sat 90%. Pt's resp status improved, able to speak in full sentences. Declines albuterol neb for now. The hospitalist service was consulted for admission. Will admit to stepdown for close monitoring. 1500: resting comfortably. Chest: difuse expir wheezing. Remains somewhat improved. Awaiting inpt bed. this pt utilized 35 minutes of critical care time exclusive of unbundled procedures. Time spent in serial assessments, ordering box operator of labs/Xray/ medications, consultations, documentation. Organ at risk: pulmonary Differential Diagnosis: includes though not limited to pneumonia, PTX, empyema, pulm edema, ACS - Data Points Laboratory Results: Laboratory Results 02/01/19 13:55 02/01/19 13:55 02/01/19 02/01/19 02/01/19 13:55 13:55 13:55 WBC 8.12 10^3/uL 10^3/uL (3.80-9.50) RBC 5.30 10^6/uL 10^6/uL (4.18-5.33) Hgb 16.1 g/dL g/dL (12.6-16.3) Hct 48.6 % H % (38.0-47.0) MCV 91.7 fL fL (81.5-99.8) MCH 30.4 pg pg (27.9-34.1) MCHC 33.1 g/dL g/dL (32.4-36.7) RDW 14.7 % % (11.5-15.2) Plt Count 311 10^3/uL 10^3/uL (150-400) MPV 10.5 fL fL (8.7-11.7) Neut % (Auto) 85.7 % H % (39.3-74.2) Lymph % (Auto) 8.9 % L % (15.0-45.0) [place] % (Auto) 4.3 % L % (4.5-13.0) Eos % (Auto) 0.1 % L % (0.6-7.6) Baso % (Auto) 0.6 % % (0.3-1.7) Nucleat RBC Rel Count 0.0 % % (0.0-0.2) Absolute Neuts (auto) 6.96 10^3/uL H 10^3/uL (1.70-6.50) Absolute Lymphs (auto) 0.72 10^3/uL L 10^3/uL (1.00-3.00) Absolute Monos (auto) 0.35 10^3/uL 10^3/uL (0.30-0.80) Absolute Eos (auto) 0.01 10^3/uL L 10^3/uL (0.03-0.40) Absolute Basos (auto) 0.05 10^3/uL 10^3/uL (0.02-0.10) Absolute Nucleated RBC 0.00 10^3/uL 10^3/uL (0-0.01) Immature Gran % 0.4 % % (0.0-1.1) Immature Gran # 0.03 10^3/uL 10^3/uL (0.00-0.10) Sodium 141 mEq/L mEq/L (135-145) Potassium 4.0 mEq/L mEq/L (3.5-5.2) Chloride 110 mEq/L mEq/L (97-110) Carbon Dioxide 22 mEq/l mEq/l (22-31) Anion Gap 9 mEq/L mEq/L (6-14) BUN 9 mg/dL mg/dL (7-23) Creatinine 0.8 mg/dL mg/dL (0.6-1.0) Estimated GFR > 60 Glucose 120 mg/dL H mg/dL (70-100) Calcium 10.0 mg/dL mg/dL (8.5-10.4) Magnesium 2.2 mg/dL mg/dL (1.6-2.3) Medications Given: Acetaminophen (Tylenol) 650 mg PO Q4HRS PRN PRN Reason: Pain, Mild/Fever, Can Take PO Stop: 07/31/19 14:50 Last Admin: 02/01/19 16:37 Dose: 650 mg Albuterol/Ipratropium (Duoneb) 3 ml IH QID MARCELLO Stop: 07/31/19 15:59 Last Admin: 02/01/19 16:59 Dose: 3 ml Sodium Chloride (Ns) 1,000 mls @ 75 mls/hr IV CONT MARCELLO Stop: 07/31/19 14:59 Last Admin: 02/01/19 16:40 Dose: 1,000 mls Methylprednisolone Sodium Succinate (Solu-Medrol) 60 mg IVP Q6HRS MARCELLO Stop: 07/31/19 17:59 Last Admin: 02/01/19 18:32 Dose: 60 mg Discontinued Medications Albuterol (Proventil Neb) 9 ml IH EDNOW ONE Stop: 02/01/19 13:44 Last Admin: 02/01/19 14:03 Dose: 9 ml Albuterol/Ipratropium (Duoneb) 3 ml IH EDNOW ONE Stop: 02/01/19 13:40 Last Admin: 02/01/19 13:44 Dose: 3 ml Sodium Chloride (Ns) 1,000 mls @ 0 mls/hr IV ONCE ONE; Wide Open PRN Reason: Protocol Stop: 02/01/19 15:17 Last Admin: 02/01/19 16:40 Dose: Not Given Methylprednisolone Sodium Succinate (Solu-Medrol) 125 mg IVP EDNOW ONE Stop: 02/01/19 13:44 Last Admin: 02/01/19 13:57 Dose: 125 mg Departure - Departure Disposition: [facility] Inpatient Acute Clinical Impression: Acute respiratory failure with hypoxia Exacerbation of asthma Qualifiers: Asthma severity: moderate Asthma persistence: persistent Qualified Code(s): J45.41 - Moderate persistent asthma with (acute) exacerbation Condition: Fair
[2019-02-01 14:11] LABS: PLATELET COUNT 311 10^3/uL (150-400)
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
[2019-02-01] MEDS ORDERED: ONDANSETRON DISINTEGRATING 4 MG TAB PO PRN (14:51)
[2019-02-01] MEDS ORDERED: ONDANSETRON 4 MG/2 ML VIAL IVP PRN (14:51)
[2019-02-01] MEDS ORDERED: ALBUTEROL 60 PUFFS/8 GM MDI IH PRN (14:51)
[2019-02-01] MEDS ORDERED: ACETAMINOPHEN 325 MG TAB PO PRN (14:51)
[2019-02-01] MEDS ORDERED: NS 1,000 ML IV ONE (15:16)
[2019-02-01] MEDS: NS 1,000 ML IV SCH (16:40)
[2019-02-01] MEDS: IPRATROPIUM/ALBUTEROL 3 ML DEYVIAL IH SCH ×2 (16:59→21:11)
[2019-02-01] MEDS ORDERED: methylPREDNISolone SOD SUCC 125 MG/2 ML VIAL IVP SCH (18:00)
[2019-02-01] MEDS: methylPREDNISolone SOD SUCC 125 MG/2 ML VIAL IVP SCH (18:32)
[2019-02-01] MEDS ORDERED: MAGNESIUM SULF 2 GM/WATER 50 ML IV ONE (19:41)
[2019-02-01] MEDS: FLUTICASONE/SALMETER 100/50MCG DISKUS IH SCH (21:13)
[2019-02-01] MEDS ORDERED: LORazepam 2 MG/ML INJ IVP ONE (21:15)
--- NOTE | 2019-02-01 22:22 | PDMN ---
Medical Necessity Medical necessity: Pt meets IP criteria as of 02/01/2019 per and KATHERINE M-60 ( asthma); est los > 2 mn for ongoing tx and management of acute hypoxic respiratory failure secondary to acute asthma exacerbation with tachypnea and hypoxemia; pt requiring 13 lpm venti mask, respiratory support, IVP steroids and frequent nebulizer tx.
[2019-02-02] MEDS: methylPREDNISolone SOD SUCC 125 MG/2 ML VIAL IVP SCH ×3 (01:00→13:13)
[2019-02-02] MEDS: IPRATROPIUM/ALBUTEROL 3 ML DEYVIAL IH SCH ×4 (05:14→21:18)
[2019-02-02] MEDS: NS 1,000 ML IV SCH (06:13)
[2019-02-02 06:34] LABS: PLATELET COUNT 282 10^3/uL (150-400)
--- NOTE | 2019-02-02 08:26 | HOSPPROG ---
Hospitalist Progress Note Assessment/Plan: #Acute hypoxemic resp failure: due to asthma exacerbation #Asthma exacerbation: -poorly-controlled at home. Allergies may be trigger? Denies infectious sxs, no PNA. -decrease steroids dose, cont nebs. Add Singulair -no prior intubation #Anxiety: previously on Klonopin. Still grieving son's > 1 year ago. Rec SSRI and therapist rather than benzo. Will start here if she agrees #Leukocytosis: due to steroids, afebrile #Diet: regular #DVT ppx: Lovenox #Disp: inpatient admission for IV steroids, nebs. Ok for med-surg Subjective: breathing improved. Anxious this morning Objective: Vital Signs Temp Pulse Resp BP Pulse Ox 36.7 C 78 18 117/63 98 02/01/19 20:00 02/02/19 07:25 02/02/19 07:25 02/02/19 07:25 02/02/19 07:25 Laboratory Results 02/02/19 06:15 02/02/19 06:15 02/01/19 02/02/19 02/03/19 05:59 05:59 05:59 Intake Total 1395 Output Total 800 Balance 595 - Time Spent With Patient Time Spent with Patient: greater than 35 minutes Time Spent with Patient: Greater than 35 minutes spent on this patients care, greater than 50% of time spent counseling, educating, and coordinating care regarding the above mentioned plan. - Physical Exam Constitutional: no apparent distress Eyes: PERRL Ears, Nose, Mouth, Throat: moist mucous membranes Cardiovascular: regular rate and rhythym Respiratory: expiratory wheeze, other (very tight, poor air movement throughout) Gastrointestinal: normoactive bowel sounds Genitourinary: no bladder fullness Skin: warm Musculoskeletal: full muscle strength Neurologic: AAOx3, CN II-XII Intact Psychiatric: anxious, other (tearful) ICD10 Worksheet Patient Problems: Problems Problem Status Onset Acute respiratory failure with hypoxia Acute Exacerbation of asthma Acute Bradycardia Acute Respiratory distress Acute Severe asthma Acute Syncope and collapse Acute
--- NOTE | 2019-02-02 09:48 | ASMTCASEMG ---
Living Arrangements What is your living Answers: Alone arrangement? Who do you live with? Type Of Residence What kind of residence do Answers: House you live in? Discharge Plan Comments Coordination Status Comments Notes: Patient is a 58yo single female with a hx of asthma admitted for acute hypoxic respiratory failure secondary to asthma exacerbation. No therapies ordered at this time. D/C plan TBD. CM will follow. Date Signed: 02/02/2019 09:47 AM Electronically Signed By:Caterina Palmer LCSW
--- NOTE | 2019-02-02 10:16 | CPEKG ---
Test Reason : OPEN Blood Pressure : / mmHG Vent. Rate : 103 BPM Atrial Rate : 103 BPM P-R Int : 141 ms QRS Dur : 083 ms QT Int : 370 ms P-R-T Axes : 088 092 -03 degrees QTc Int : 485 ms Sinus tachycardia JULISA, consider biatrial enlargement Borderline right axis deviation Non specific ST/T wave changes to lateral leads Confirmed by Perez Sanchez ([id number]) on 02/02/2019 10:15:44 AM Referred By: Angel Farr Confirmed By:Perez Sanchez
[2019-02-02] MEDS: ENOXAPARIN 40 MG/0.4 ML SYR SC SCH (10:31)
[2019-02-02] MEDS ORDERED: LORazepam 0.5 MG TAB PO PRN (11:19)
[2019-02-02] MEDS: FLUTICASONE/SALMETER 100/50MCG DISKUS IH SCH ×2 (12:10→21:20)
--- NOTE | 2019-02-02 16:16 | GCON ---
[f rep st] CONSULTATION PULMONARY/CRITICAL CARE CONSULTATION DATE OF CONSULTATION: 02/02/2019 REFERRING PHYSICIAN: Leatha Gonzalez MD REASON FOR CONSULTATION: Evaluation and management of asthma exacerbation. HISTORY OF PRESENT ILLNESS: Ms. Hoffman is a 58-year-old woman, who has a fairly long history of asth ma. She was started on Advair many years ago, but stopped it because she thought that it was increas ing the frequency of her symptoms. In July of 2018, she was hospitalized for 5 days with an ast hma exacerbation triggered by a respiratory tract infection. She was placed on BiPAP for the initial part of that stay. She was seen by Dr. Giraldo, who recommended she continue Advair and follow up wit h him in the office with spirometry. However, she stopped the Advair because she did not want to monica e it, in part because of the feeling that it increased her exacerbations, as well as the powder sensa tion in her mouth. She did not follow up with Dr. Giraldo. Since that time, she has had symptoms most days if she goes out in cold air, for which she uses an albuterol inhaler. She also wakes up most n ights in order to urinate, and uses albuterol at that time because she can feel wheezing in her chest . She has not had any more prominent symptoms, and does not feel that her asthma has limited her fro m doing anything. She is able to be fairly active. Her typical symptoms are chest tightness and whe ezing. She cannot identify any other triggers. She has had cats for a long time and does not have a ny symptoms of allergy to her cats. The most prominent seasonal symptoms are in the winter when it is cold. PAST MEDICAL HISTORY: MEDICATIONS: At the time of admission, include albuterol inhaler and nebulizer (which she uses kvng bronw). FAMILY HISTORY: Positive for diabetes, no asthma. Her and son both in the past 2 years . SOCIAL HISTORY: The patient has a prior history of trivial smoking in the past. She drinks alcohol occasionally. REVIEW OF SYSTEMS: A 10-point review of systems adds nothing to the history of present illness. PHYSICAL EXAMINATION: GENERAL: The patient is awake, alert, in no acute distress. VITAL SIGNS: Bl ood pressure is 120/73 with a heart rate of 104. She is afebrile. Oxygen saturations are 95% on 4 L of oxygen. HEENT: Normocephalic and atraumatic. No icterus. NECK: No JVD. Trachea is midline. CHEST: She has bilateral wheezes. CARDIAC: Regular rate and rhythm without murmur. ABDOMEN: Sof t, nontender. Bowel sounds are present. EXTREMITIES: No clubbing, cyanosis, or edema. NEURO: The patient is awake, alert. She has no gross motor or sensory deficits. LABORATORY: White blood count is 12.7. A chemistry group is unremarkable. An arterial blood gas sh ows a pH of 7.38 with a pO2 of 66, a CO2 of 30, and a bicarbonate of 18 on 13 L of oxygen. IMAGING: Chest x-ray shows no acute cardiopulmonary process. Images reviewed by me. ASSESSMENT: Asthma exacerbation. This is the second time the patient has had a severe and asthma ex acerbation. During the prior one, the patient was placed on BiPAP and had a pH as low as 7.21. Josef ng her current exacerbation, she has improved symptomatically with steroids and nebulized bronchodila tors. She never had significant respiratory acidosis, but did have significant hypoxemia. She does not appear to have had a clear trigger. She says she feels back to her baseline, but has extensive w heezes bilaterally, so I suspect at baseline she has significant airway obstruction/inflammation, sup ported by her use of albuterol about 1 to 2 times most days. I talked to her about the pathophysiolo gy of asthma, and also conveyed to her that she has life-threatening asthma, and there is the potenti al for having an exacerbation, which could potentially be fatal. The best way to mitigate this risk, would be with the daily use of controller medication such as an inhaled corticosteroid. She has bee n resistant to those in the past due to her feeling that they increased the frequency of her symptoms , as well as the grittiness in her mouth when she took Advair. However, she is quite concerned regar ding this most recent exacerbation, and is more motivated to follow up, and consider daily therapy. RECOMMENDATIONS: 1. Change steroids to p.o. 2. Continue Advair and nebulized bronchodilators for now. Agree with adding Singulair temporarily, although in the absence of a history of allergic-induced symptoms, this is less likely to be effectiv e than inhaled steroids. I will arrange for followup with me in the office in order to monitor her s teroid taper and symptoms, and begin outpatient followup including monitoring with spirometry. 3. The patient could probably be removed to medical/surgical floor as her oxygen is being weaned off . /[id number]/MODL
[2019-02-02] MEDS ORDERED: MONTELUKAST SODIUM 10 MG TAB PO SCH (18:00)
[2019-02-02] MEDS: predniSONE 20 MG TAB PO SCH (18:10)
[2019-02-02] MEDS ORDERED: methylPREDNISolone SOD SUCC 125 MG/2 ML VIAL IVP SCH (21:00)
[2019-02-03] MEDS: IPRATROPIUM/ALBUTEROL 3 ML DEYVIAL IH SCH ×2 (05:49→11:10)
[2019-02-03 08:05] VITALS: BP 107/66
[2019-02-03] MEDS: predniSONE 20 MG TAB PO SCH (09:37)
[2019-02-03] MEDS: ENOXAPARIN 40 MG/0.4 ML SYR SC SCH (09:37)
[2019-02-03] MEDS: FLUTICASONE/SALMETER 100/50MCG DISKUS IH SCH (11:10)
--- NOTE | 2019-02-03 12:18 | PDINTPN ---
Refrigeration Lead Progress Note Assessment/Plan: Assessment: Asthma: Chronically mild persistent, now with a second severe exacerbation in the last 6 months. Not on any daily controller medications. No clear trigger for current exacerbation. Improved with prednisone, Advair, and now Singulair. Still requiring low-flow oxygen. Plan: OK to discharge on Prednisone taper over about a week, Advair, Singulair, albuterol and oxygen. Follow-up with me with spirometry in a week. 02/03/19 12:15 Subjective: Feels better, less dyspnea/chest tightness, reduced anxiety. Objective: Vital Signs Temp Pulse Resp BP Pulse Ox 36.9 C 89 18 107/66 95 02/03/19 08:00 02/03/19 11:10 02/03/19 11:10 02/03/19 08:00 02/03/19 11:10 Laboratory Results 02/03/19 06:07 02/02/19 06:15 02/02/19 02/03/19 02/04/19 05:59 05:59 05:59 Intake Total 1395 1510 Output Total 800 Balance 595 1510 Physical Exam - Physical Exam General Appearance: alert, no apparent distress EENT: normal ENT inspection Neck: normal inspection Respiratory: lungs clear, normal breath sounds Cardiac/Chest: regular rate, rhythm, No edema Abdomen: normal bowel sounds, non-tender Skin: normal color, warm/dry Extremities: normal inspection Neuro/Psych: alert, normal mood/affect, oriented x 3 ICD10 Worksheet Patient Problems: Problems Problem Status Onset Acute respiratory failure with hypoxia Acute Exacerbation of asthma Acute Bradycardia Acute Respiratory distress Acute Severe asthma Acute Syncope and collapse Acute
--- NOTE | 2019-02-03 13:06 | PDHOMEO2F ---
Home Oxygen Face to Face Home Orders: I certify that a physician or a nurse practitioner or physician's media assistant has had a [id number] encounter with this patient on the date of this order due to the diagnosis listed, which relates to the primary reason the patient requires home oxygen. Alternative treatments have been tried, or considered, and deemed ineffective. It is anticipated that supplemental oxygen will result in improvement with treatment. Home oxygen qualifying diagnosis: Asthma exacerbation Home oxygen secondary diagnosis: Hypoxia SpO2 on room air (%): 86 Frequency of home oxygen needed: continuous Home oxygen liters per minute: 2 Home oxygen delivery device: nasal cannula Concentrator: Yes E-tanks for mobility and back up: Yes If ordering portable O2, is the patient mobile in the home?: Yes I certify that, based on these findings, the home oxygen is medically necessary for this patient for the following length of time. Length of time home oxygen needed: 99 years
--- NOTE | 2019-02-03 14:24 | GDS ---
[f rep st] DISCHARGE SUMMARY DISCHARGE DIAGNOSES: 1. Mild persistent asthma. 2. Asthma exacerbation. HISTORY OF PRESENT ILLNESS: Pleasant 58-year-old female with history of asthma on inhalers, anxiety, who presented with shortness of breath. [place] her lungs were tight. Took a nebulizer treatment and went to sleep. She woke up in the morning feeling even worse. She denies infectious symptoms or sick contacts. She was admitted June 2018 for asthma exacerbation. Due to upper respiratory infection at that time, she required BiPAP. Has never been intubated. HOSPITAL COURSE BY PROBLEM: 1. Asthma exacerbation: not well-controlled at home. There is no distinct trigger here. Improved on prednisone, Advair, Albuterol and Singulair. DC with these meds and oxygen. Follow up with Dr. Cui. 2. Chronically mild persistent asthma. plan as stated above. 3. Anxiety: intermittent panic attacks and is still grieving the of her son. Discussed SSRI for long-term control, but she does not want to take any medications. She should see her PCP for referral for a therapist. MEDICATIONS: New medication Singulair. Prednisone taper. Refill Advair albuterol. FOLLOWUP: Edson Cui in 1 week. Referral for therapist DISPOSITION: Patient stable for discharge home. PHYSICAL EXAMINATION: VITAL SIGNS: Today, temperature 36.6, blood pressure is 107/66, heart rate in the 70s, respirations 16, 96% on 1-2 L. GENERAL: No acute distress. HEENT: PERRLA. Moist mucous membranes. CV: Regular rate and rhythm. LUNGS: Diminished. Moving more air today. Less wheezing. ABDOMEN: Soft, nontender. MUSCULOSKELETAL: 5/5 upper and lower extremity strength. NEURO: 2 through 12 intact. PSYCH: Alert and oriented x3. TIME SPENT ON DISCHARGE: Greater than 30 minutes. /[id number]/MODL MTDD
== END 2019-02-03 14:47 | disposition home or self-care (01) | DRG 141 ==
LOC: F2N 16:22
PROVIDERS: ADMIT Internal Medicine; ATTEND Internal Medicine
DX: J45.901 Unspecified asthma with (acute) exacerbation (principal); J96.01 Acute respiratory failure with hypoxia; F41.0 Panic disorder [episodic paroxysmal anxiety]; D72.829 Elevated white blood cell count, unspecified; Z87.891 Personal history of nicotine dependence
CPT/HCPCS: 96374; J1650; J2060; J2930; J3475; J7512; J7613